=== PATIENT | female | born 1940 | race Caucasian/White ===

== ENCOUNTER 2022-01-07 15:43 | Outpatient (CLI) | payer MEDICARE, BC, SELFPAY ==
[2022-01-07 19:42] LABS: Blood Urea Nitrogen* 22 mg/dL (7-30); Calcium* 8.7 mg/dL (8.4-10.6); Carbon Dioxide* 29 mmol/L (20-32); Chloride* 103 mmol/L (96-114); Creatinine* 0.6 mg/dL (0.5-1.5); Estimated Glomerular Filt Rate 90 ml/min; Glucose* 140 mg/dL (60-115); Potassium* 3.8 mmol/L (3.6-5.1); Sodium* 141 mmol/L (135-149)
== END 2022-01-07 15:44 | disposition home or self-care (01) ==
LOC: LONREF 15:44
PROVIDERS: PCP Family Medicine; Visit Provider Family Medicine
DX: Z13.1 Encounter for screening for diabetes mellitus (principal)
CPT/HCPCS: 80048

== ENCOUNTER 2022-12-20 11:14 | Outpatient (CLI) | payer MEDICARE, BC, SELFPAY | END 2022-12-20 11:15 | disposition home or self-care (01) | PROVIDERS: PCP Family Medicine; Visit Provider Family Medicine | DX: D64.9 Anemia, unspecified (principal); G20.A1 Parkinson's disease without dyskinesia, without mention of fluctuations; Z13.0 Encounter for screening for diseases of the blood and blood-forming organs and certain disorders involving the immune mechanism; Z13.29 Encounter for screening for other suspected endocrine disorder; Z13.1 Encounter for screening for diabetes mellitus; Z13.21 Encounter for screening for nutritional disorder | CPT/HCPCS: 80053; 82607; 82746; 84439; 84443 ==